=== PATIENT | male | born 1975 | race Caucasian/White ===

== ENCOUNTER 2016-08-17 12:12 | Emergency (ER) | payer SELFPAY ==
[~2016-08-17] VITALS: Ht 172.7 cm; Wt 94.0 kg
[~2016-08-17 12:12] MED LIST: LANTUS; LIPITOR; NOVALOG
[2016-08-17 12:15] VITALS: Ht 172.7 cm; Wt 94.0 kg
--- OUTSIDE RECORDS SUMMARY | 2016-08-17 12:16 | XMS REPORT | Referral Summary ---
Author Author [facility] Organization [facility] Address Unknown Phone Unavailable Care Team Providers Care Knitting Inspector Name Role Phone Martin Ma Primary Care Physician [phone] Encounter VC Date(s): 02/19/15 - 02/19/15 [facility] [address] [place] [id number] Discharge Disposition: 01-Home or Self Care Attending Physician: Roberto Ma MD Admitting Physician: Roberto Ma MD Vital Signs Most recent to 1 oldest [Reference Range]: Blood Pressure 124/84 mmHg [90-140/60-90 mmHg] (02/19/15 4:04 PM) Problem List Condition Effective Dates Status Health Status Informant Diabetes(Confirmed) 1988 Active Dyslipidemia(Confirm Active ed) GERD Active (gastroesophageal reflux disease)(Confirmed) Hyperlipidemia(Confi Active rmed) Obesity(Confirmed) Active Depression(Confirmed Active ) Apnea, Active sleep(Confirmed) Allergies, Adverse Reactions, Alerts No Known Medication Allergies Medications atorvastatin 20 mg oral tablet See Instructions, TAKE 1 TABLET BY MOUTH EVERY DAY, # 30 tabs, 3 Refill(s), eRx : [facility] [id number], TAKE 1 TABLET BY MOUTH EVERY DAY Start Date: 12/18/14 Status: Ordered CeleXA 20 mg oral tablet See Instructions, TAKE 1 TABLET (20MG) BY ORAL ROUTE EVERY DAY. Needs appt for further refills., # 30 tabs, 0 Refill(s), Pharmacy: [facility] [id number], TAKE 1 TABLET (20MG) BY ORAL ROUTE EVERY DAY. Needs appt for further refills. Start Date: 01/22/15 Status: Ordered Fish Oil 1000 mg oral capsule 1 caps, Oral, Daily Start Date: 02/07/14 Status: Ordered Insulin [place] (DME) DME Item NovoFine 30 30 x 1/3"; QID, See Instructions, Supply Start Date: 02/07/14 Status: Ordered Insulin [place] (DME) DME Item 31 x 07/17"; daily, See Instructions, Supply Start Date: 02/07/14 Status: Ordered Lantus Solostar Pen 100 units/mL subcutaneous solution See Instructions, INJECT 40 UNITS SUB-Q AT BEDTIME, # 60 unknown unit, 2 Refill( s), eRx: [facility] #[id number], INJECT 38 UNITS SUB-Q AT BEDTIME Start Date: 03/06/14 Status: Ordered Multivitamins oral tablet 1 tabs, Oral, Daily Start Date: 02/07/14 Stop Date: 02/08/14 Status: Ordered NovoLOG FlexPen 100 units/mL subcutaneous solution See Instructions, INJECT 14 UNITS SUB-Q AT BREAKFAST, 12 UNITS AT LUNCH, AND 10 UNITS AT SUPPER, # 60 unknown unit, 2 Refill(s), eRx: [facility] #[id number], INJECT 14 UNITS SUB-Q AT BREAKFAST, 12 UNITS AT LUNCH, AND 10 UNITS AT SUPPER Start Date: 03/06/14 Status: Ordered potassium chloride 99 mg oral tablet 99 mg 1 tabs, Oral, Daily, # 100 tabs, 0 Refill(s) Start Date: 02/19/15 Status: Ordered vitamin E 100 intl units oral capsule See Instructions, daily Start Date: 02/07/14 Status: Ordered Results Chemistry Most recent to 1 oldest [Reference Range]: Sodium Lvl [135-144 138 mEq/L mEq/L] (02/19/15 4:47 PM) Potassium Lvl 4.6 mEq/L [3.5-5.2 mEq/L] (02/19/15 4:47 PM) Chloride [99-111 102 mEq/L mEq/L] (02/19/15 4:47 PM) CO2 [23-31 mEq/L] 29 mEq/L (02/19/15 4:47 PM) AGAP [3-20] 7 (02/19/15 4:47 PM) BUN [9-21 mg/dL] 14 mg/dL (02/19/15 4:47 PM) Glucose Lvl [70-99 149 mg/dL mg/dL] *HI* (02/19/15 4:47 PM) Creatinine Lvl 1.24 mg/dL [0.72-1.25 mg/dL] (02/19/15 4:47 PM) eGFR [>60 mL/min] >60 mL/min 1 (02/19/15 4:47 PM) Calcium Lvl 9.6 mg/dL [8.9-10.5 mg/dL] (02/19/15 4:47 PM) Albumin Lvl [3.5-5.0 4.5 gm/dL gm/dL] (02/19/15 4:47 PM) Total Protein 7.3 gm/dL [6.4-8.3 gm/dL] (02/19/15 4:47 PM) Globulin [1.8-4.0 2.8 gm/dL gm/dL] (02/19/15 4:47 PM) ALT [0-55 U/L] 37 U/L (02/19/15 4:47 PM) AST [5-34 U/L] 24 U/L (02/19/15 4:47 PM) Alk Phos [40-150 107 U/L U/L] (02/19/15 4:47 PM) Bili Total [0.2-1.2 1.2 mg/dL mg/dL] (02/19/15 4:47 PM) Chol [0-199 mg/dL] 206 mg/dL *HI* (02/19/15 4:47 PM) Trig [0-149 mg/dL] 340 mg/dL *HI* (02/19/15 4:47 PM) HDL [40-84 mg/dL] 37 mg/dL *LOW* (02/19/15 4:47 PM) LDL [0-130 mg/dL] 101 mg/dL (02/19/15 4:47 PM) VLDL Cholesterol 68 mg/dL [0-28 mg/dL] *HI* (02/19/15 4:47 PM) Cardiac Risk 5.6 [0.0-5.7] (02/19/15 4:47 PM) Hgb A1c [4.1-5.6 %] 7.9 % *HI* (02/19/15 4:47 PM) eAvg Glucose 180.0 mg/dL (02/19/15 4:47 PM) 1Result Comment: Multiply eGFR results by 1.21 for race. Immunizations Vaccine Date Refusal Reason tetanus/diphth/pertuss (Tdap) adult/adol 07/08/13 influenza virus vaccine, inactivated 02/19/15 Procedures Procedure Date Related Diagnosis Body Site Collection of venous blood by venipuncture 02/19/15 Social History Social History Type Response Smoking Status Never smoker Assessment and Plan Extracted from: Title: Ambulatory Patient Education Author: Roberto Ma MD Date: Family Medicine Diabetes and Exercise Exercising regularly is important. It is not just about losing weight. It has many health benefits, such as: Improving your overall fitness, flexibility, and endurance. Increasing your bone density. Helping with weight control. Decreasing your body fat. Increasing your muscle strength. Reducing stress and tension. Improving your overall health. People with diabetes who exercise gain additional benefits because exercise: Reduces appetite. Improves the body's use of blood sugar (glucose). Helps lower or control blood glucose. Decreases blood pressure. Helps control blood lipids (such as cholesterol and triglycerides). Improves the body's use of the hormone insulin by: Increasing the body's insulin sensitivity. Reducing the body's insulin needs. Decreases the risk for heart disease because exercising: Lowers cholesterol and triglycerides levels. Increases the levels of good cholesterol (such as high-density lipoproteins [HDL]) in the body. Lowers blood glucose levels. YOUR ACTIVITY PLAN Choose an activity that you enjoy and set realistic goals. Your health care provider or primary special educator can help you make an activity plan that works for you. Exercise regularly as directed by your health care provider. This includes: Performing resistance training twice a week such as push-ups, sit-ups, lifting weights, or using resistance bands. Performing 150 minutes of cardio exercises each week such as walking, running, or playing sports. Staying active and spending no more than 90 minutes at one time being inactive. Even short bursts of exercise are good for you. Three 10-minute sessions spread throughout the day are just as beneficial as a single 30-minute session. Some exercise ideas include: Taking the dog for a walk. Taking the stairs instead of the elevator. Dancing to your favorite song. Doing an exercise video. Doing your favorite exercise with a friend. RECOMMENDATIONS FOR EXERCISING WITH TYPE 1 OR TYPE 2 DIABETES Check your blood glucose before exercising. If blood glucose levels are greater than 240 mg/dL, check for urine ketones. Do not exercise if ketones are present. Avoid injecting insulin into areas of the body that are going to be exercised. For example, avoid injecting insulin into: The arms when playing tennis. The legs when jogging. Keep a record of: Food intake before and after you exercise. Expected peak times of insulin action. Blood glucose levels before and after you exercise. The type and amount of exercise you have done. Review your records with your health care provider. Your health care provider will help you to develop guidelines for adjusting food intake and insulin amounts before and after exercising. If you take insulin or oral hypoglycemic agents, watch for signs and symptoms of hypoglycemia. They include: Dizziness. Shaking. Sweating. Chills. Confusion. Drink plenty of water while you exercise to prevent dehydration or heat stroke. Body water is lost during exercise and must be replaced. Talk to your health care provider before starting an exercise program to make sure it is safe for you. Remember, almost any type of activity is better than none. Document Released: 07/10/2004 Document Revised: 09/04/2014 Document Reviewed: [employer] Patient Information 2015 [email or web address] [facility]. This information is not intended to replace advice given to you by your health care provider. Make sure you discuss any questions you have with your health care provider. Diabetes Mellitus and Food It is important for you to manage your blood sugar (glucose) level. Your blood glucose level can be greatly affected by what you eat. Eating healthier foods in the appropriate amounts throughout the day at about the same time each day will help you control your blood glucose level. It can also help slow or prevent worsening of your diabetes mellitus. Healthy eating may even help you improve the level of your blood pressure and reach or maintain a healthy weight. HOW CAN FOOD AFFECT ME? Carbohydrates Carbohydrates affect your blood glucose level more than any other type of food. Your dietitian will help you determine how many carbohydrates to eat at each meal and teach you how to count carbohydrates. Counting carbohydrates is important to keep your blood glucose at a healthy level, especially if you are using insulin or taking certain medicines for diabetes mellitus. Alcohol Alcohol can cause sudden decreases in blood glucose (hypoglycemia), especially if you use insulin or take certain medicines for diabetes mellitus. Hypoglycemia can be a life-threatening condition. Symptoms of hypoglycemia ( sleepiness, dizziness, and disorientation) are similar to symptoms of having too much alcohol. If your health care provider has given you approval to drink alcohol, do so in moderation and use the following guidelines: Women should not have more than one drink per day, and men should not have more than two drinks per day. One drink is equal to: 12 oz of beer. 5 oz of wine. 1 oz of hard liquor. Do not drink on an empty stomach. Keep yourself hydrated. Have water, diet soda, or unsweetened iced tea. Regular soda, juice, and other mixers might contain a lot of carbohydrates and should be counted. WHAT FOODS ARE NOT RECOMMENDED? As you make food choices, it is important to remember that all foods are not the same. Some foods have fewer nutrients per serving than other foods, even though they might have the same number of calories or carbohydrates. It is difficult to get your body what it needs when you eat foods with fewer nutrients. Examples of foods that you should avoid that are high in calories and carbohydrates but low in nutrients include: Trans fats (most processed foods list trans fats on the Nutrition Facts label). Regular soda. Juice. Candy. Sweets, such as cake, pie, doughnuts, and cookies. Fried foods. WHAT FOODS CAN I EAT? Have nutrient-rich foods, which will nourish your body and keep you healthy. The food you should eat also will depend on several factors, including: The calories you need. The medicines you take. Your weight. Your blood glucose level. Your blood pressure level. Your cholesterol level. You also should eat a variety of foods, including: Protein, such as meat, poultry, fish, tofu, nuts, and seeds (lean animal proteins are best). Fruits. Vegetables. Dairy products, such as milk, cheese, and yogurt (low fat is best). Breads, grains, pasta, cereal, rice, and beans. Fats such as olive oil, trans fat-free margarine, canola oil, avocado, and olives. DOES EVERYONE WITH DIABETES MELLITUS HAVE THE SAME MEAL PLAN? Because every person with diabetes mellitus is different, there is not one meal plan that works for everyone. It is very important that you meet with a dietitian who will help you create a meal plan that is just right for you. Document Released: 01/15/2006 Document Revised: 04/25/2014 Document Reviewed: [facility] Patient Information 2015 [employer]. This information is not intended to replace advice given to you by your health care provider. Make sure you discuss any questions you have with your health care provider. Myocardial Infarction A myocardial infarction (CO) is damage to the heart that is not reversible. It is also called a heart attack. An CO usually occurs when a heart (coronary) artery becomes blocked or narrowed. This cuts off the blood supply to the heart. When one or more of the heart (coronary) arteries becomes blocked, that area of the heart begins to . This causes pain felt during an CO. If you think you might be having an CO, call your local emergency services immediately (911 in [place] It is recommended that you chew and swallow 3 non- enteric coated baby aspirin if you do not have an aspirin allergy. Do not drive yourself to the hospital or wait to see if your symptoms go away. The sooner CO is treated, the greater the amount of heart muscle saved. Time is muscle. It can save your life. CAUSES An CO can occur from: A gradual buildup of a fatty substance called plaque. When plaque builds up in the arteries, this condition is called atherosclerosis. This buildup can block or reduce the blood supply to the heart artery(s). A sudden plaque rupture within a heart artery that causes a blood clot ( thrombus). A blood clot can block the heart artery which does not allow blood flow to the heart. A severe tightening (spasm) of the heart artery. This is a less common cause of a heart attack. When a heart artery spasms, it cuts off blood flow through the artery. Spasms can occur in heart arteries that do not have atherosclerosis. RISK FACTORS People at risk for an CO usually have one or more risk factors, such as: High blood pressure. High cholesterol. Smoking. Gender. Men have a higher heart attack risk. Overweight/obesity. Age. Family history. Lack of exercise. Diabetes. Stress. Excessive alcohol use. Street drug use (cocaine and methamphetamines). SYMPTOMS CO symptoms can vary, such as: In both men and women, CO symptoms can include the following: Chest pain. The chest pain may feel like a crushing, squeezing, or "pressure" type feeling. CO pain can be "referred," meaning pain can be caused in one part of the body but felt in another part of the body. Referred CO pain may occur in the left arm, neck, or jaw. Pain may even be felt in the right arm. Shortness of breath (dyspnea). Heartburn or indigestion with or without vomiting, shortness of breath, or sweating (diaphoresis). Sudden, cold sweats. Sudden lightheadedness. Upper back pain. Women can have unique CO symptoms, such as: Unexplained feelings of nervousness or anxiety. Discomfort between the shoulder blades (scapula) or upper back. Tingling in the hands and arms. In elderly people (regardless of gender), CO symptoms can be subtle, such as: Sweating (diaphoresis). Shortness of breath (dyspnea). General tiredness (fatigue) or not feeling well (malaise). DIAGNOSIS Diagnosis of an CO involves several tests such as: An assessment of your vital signs such as heart rhythm, blood pressure, respiratory rate, and oxygen level. An EKG (ECG) to look at the electrical activity of your heart. Blood tests called cardiac markers are drawn at scheduled times to measure proteins or enzymes released by the damaged heart muscle. A chest X-ray. An echocardiogram to evaluate heart motion and blood flow. Coronary angiography (cardiac catheterization). This is a diagnostic procedure to look at the heart arteries. TREATMENT Acute Intervention. For an CO, the national standard in the [place] is to have an acute intervention in under 90 minutes from the time you get to the hospital. An acute intervention is a special procedure to open up the heart arteries. It is done in a treatment room called a "catheterization lab" (pathology laboratory director). Some hospitals do no have a pathology laboratory director. If you are having an CO and the hospital does not have a pathology laboratory director, the standard is to transport you to a hospital that has one. In the pathology laboratory director, acute intervention includes: Angioplasty. An angioplasty involves inserting a thin, flexible tube ( catheter) into an artery in either your groin or wrist. The catheter is threaded to the heart arteries. A balloon at the end of the catheter is inflated to open a narrowed or blocked heart artery. During an angioplasty procedure, a small mesh tube (stent) may be used to keep the heart artery open. Depending on your condition and health history, one of two types of stents may be placed: Drug-eluting stent (MAXIMILIANO). A MAXIMILIANO is coated with a medicine to prevent scar tissue from growing over the stent. With drug-eluting stents, blood thinning medicine will need to be taken for up to a year. Bare metal stent. This type of stent has no special coating to keep tissue from growing over it. This type of stent is used if you cannot take blood thinning medicine for a prolonged time or you need surgery in the near future. After a bare metal stent is placed, blood thinning medicine will need to be taken for about a month. If you are taking blood thinning medicine (anti-platelet therapy) after stent placement, do not stop taking it unless your caregiver says it is okay to do so. Make sure you understand how long you need to take the medicine. Surgical Intervention If an acute intervention is not successful, surgery may be needed: Open heart surgery (coronary artery bypass graft, CABG). CABG takes a vein (saphenous vein) from your leg. The vein is then attached to the blocked heart artery which bypasses the blockage. This then allows blood flow to the heart muscle. Additional Interventions A "clot buster" medicine (thrombolytic) may be given. This medicine can help break up a clot in the heart artery. This medicine may be given if a person cannot get to a pathology laboratory director right away. Intra-aortic balloon pump (IABP). If you have suffered a very severe CO and are too unstable to go to the pathology laboratory director or to surgery, an IABP may be used. This is a temporary mechanical device used to increase blood flow to the heart and reduce the workload of the heart until you are stable enough to go to the pathology laboratory director or surgery. HOME CARE INSTRUCTIONS After an CO, you may need the following: Medicine. Take medicine as directed by your caregiver. Medicines after an CO may: Keep your blood from clotting easily (blood thinners). Control your blood pressure. Help lower your cholesterol. Control abnormal heart rhythms. Lifestyle changes. Under the guidance of your caregiver, lifestyle changes include: Quitting smoking, if you smoke. Your caregiver can help you quit. Being physically active. Maintaining a healthy weight. Eating a heart healthy diet. A dietitian can help you learn healthy eating options. Managing diabetes. Reducing stress. Limiting alcohol intake. SEEK IMMEDIATE MEDICAL CARE IF: You have severe chest pain, especially if the pain is crushing or pressure- like and spreads to the arms, back, neck, or jaw. This is an emergency. Do not wait to see if the pain will go away. Get medical help at once. Call your local emergency services (911 in the [place] Do not drive yourself to the hospital. You have shortness of breath during rest, sleep, or with activity. You have sudden sweating or clammy skin. You feel sick to your stomach (nauseous) and throw up (vomit). You suddenly become lightheaded or dizzy. You feel your heart beating rapidly or you notice "skipped" beats. MAKE SURE YOU: Understand these instructions. Will watch your condition. Will get help right away if you are not doing well or get worse. Document Released: 04/20/2006 Document Revised: 04/25/2014 Document Reviewed: [facility] Patient Information 2015 [employer]. This information is not intended to replace advice given to you by your health care provider. Make sure you discuss any questions you have with your health care provider. No follow up information was provided. Extracted from: Title: Office Visit Note Author: Roberto Ma MD Date: 02/19/15 Assessment/Plan Depression Continue with the current medications. Ordered: Office Visit Level 4 Est 26273 Diabetes Will get lab today and follow in 3 months. He was given the Flu shot and also a sheet with foods that are rich in potassium. Ordered: Albumin Level Urine Comprehensive Metabolic Panel Hemoglobin A1c Office Visit Level 4 Est 58809 Hyperlipidemia Continue with the current medications. Ordered: Comprehensive Metabolic Panel Lipid Panel Office Visit Level 4 Est 15019 Orders: insulin glargine, See Instructions, INJECT 40 UNITS SUB-Q AT BEDTIME, # 60 unknown unit, 2 Refill(s), eRx: [facility] #[id number], INJECT 38 UNITS SUB-Q AT BEDTIME
--- OUTSIDE RECORDS SUMMARY | 2016-08-17 12:16 | XMS REPORT | Referral Summary ---
Author Author [facility] Organization [facility] Address Unknown Phone Unavailable Care Team Providers Care Power Distributor Name Role Phone Martin Ma Primary Care Physician [phone] Encounter Date(s): 06/14/15 - 06/14/15 [facility] [address] [place] [address]- Discharge Diagnosis: Diabetes Discharge Disposition: 01-Home or Self Care Attending Physician: Sofia Vera PA-C Admitting Physician: Sofia Vera PA-C Vital Signs Most recent to 1 oldest [Reference Range]: Peripheral Pulse 76 bpm Rate [60-100 bpm] (06/14/15 1:35 PM) Respiratory Rate 18 br/min [14-20 br/min] (06/14/15 1:35 PM) Blood Pressure 124/82 mmHg [90-140/60-90 mmHg] (06/14/15 1:35 PM) Problem List Condition Effective Dates Status Health Status Informant Diabetes(Confirmed) 1989 Active Dyslipidemia(Confirm Active ed) GERD Active (gastroesophageal reflux disease)(Confirmed) Hyperlipidemia(Confi Active rmed) Obesity(Confirmed) Active Depression(Confirmed Active ) Apnea, Active sleep(Confirmed) Allergies, Adverse Reactions, Alerts No Known Medication Allergies Medications atorvastatin 20 mg oral tablet See Instructions, TAKE 1 TABLET BY MOUTH EVERY DAY, # 30 tabs, 1 Refill(s), eRx : [id number], TAKE 1 TABLET BY MOUTH EVERY DAY Start Date: 05/28/15 Status: Ordered citalopram 20 mg oral tablet See Instructions, TAKE 1 TABLET BY MOUTH EVERY DAY, # 90 tabs, 1 Refill(s), Pharmacy: [id number], TAKE 1 TABLET BY MOUTH EVERY DAY Start Date: 02/22/15 Status: Ordered Fish Oil 1000 mg oral capsule 1 caps, Oral, Daily Start Date: 02/07/14 Status: Ordered Insulin [place] (DME) DME Item NovoFine 30 30 x 1/3"; QID, See Instructions, Supply Start Date: 02/07/14 Status: Ordered Insulin [place] (DME) DME Item 31 x 3/16"; daily, See Instructions, Supply Start Date: 02/07/14 Status: Ordered Lantus Solostar Pen 100 units/mL subcutaneous solution See Instructions, INJECT 40 UNITS SUB-Q AT BEDTIME, # 60 unknown unit, 2 Refill( s), eRx: [facility] #[id number], INJECT 38 UNITS SUB-Q AT BEDTIME Start Date: 03/06/14 Status: Ordered Multivitamins oral tablet 1 tabs, Oral, Daily Start Date: 02/07/14 Stop Date: 02/08/14 Status: Ordered NovoLOG FlexPen 100 units/mL subcutaneous solution See Instructions, INJECT 14 UNITS SUB-Q AT BREAKFAST, 12 UNITS AT LUNCH, AND 10 UNITS AT SUPPER, # 60 unknown unit, 2 Refill(s), eRx: [facility] #[id number], INJECT 14 UNITS SUB-Q AT BREAKFAST, 12 UNITS AT LUNCH, AND 10 UNITS AT SUPPER Start Date: 03/06/14 Status: Ordered potassium chloride 99 mg oral tablet 99 mg 1 tabs, Oral, Daily, # 100 tabs, 0 Refill(s) Start Date: 02/19/15 Status: Ordered vitamin E 100 intl units oral capsule See Instructions, daily Start Date: 02/07/14 Status: Ordered Results No data available for this section Immunizations Vaccine Date Refusal Reason tetanus/diphth/pertuss (Tdap) adult/adol 07/08/13 influenza virus vaccine, inactivated 02/19/15 Procedures No data available for this section Social History Social History Type Response Smoking Status Never smoker Assessment and Plan Extracted from: Title: Ambulatory Patient Education Author: Sofia Vera PA-C Date : 06/14/15 Family Medicine How to Avoid Diabetes Problems You can do a lot to prevent or slow down diabetes problems. Following your diabetes plan and taking care of yourself can reduce your risk of serious or life-threatening complications. Below, you will find certain things you can do to prevent diabetes problems. MANAGE YOUR DIABETES Follow your health care provider's, nurse educator's, and dietitian's instructions for managing your diabetes. They will teach you the basics of diabetes care. They can help answer questions you may have. Learn about diabetes and make healthy choices regarding eating and physical activity. Monitor your blood glucose level regularly. Your health care provider will help you decide how often to check your blood glucose level depending on your treatment goals and how well you are meeting them. DO NOT USE NICOTINE Nicotine and diabetes are a dangerous combination. Nicotine raises your risk for diabetes problems. If you quit using nicotine, you will lower your risk for heart attack, stroke, nerve disease, and kidney disease. Your cholesterol and your blood pressure levels may improve. Your blood circulation will also improve. Do not use any tobacco products, including cigarettes, chewing tobacco , or electronic cigarettes. If you need help quitting, ask your health care provider. KEEP YOUR BLOOD PRESSURE UNDER CONTROL Your health care provider will determine your individualized target blood pressure based on your age, your medicines, how long you have had diabetes, and any other medical conditions you have. Blood pressure consists of two numbers. Generally, the goal is to keep your top number (systolic pressure) at or below 130, and your bottom number (diastolic pressure) at or below 80. Your health care provider may recommend a lower target blood pressure reading, if appropriate. Meal planning, medicines, and exercise can help you reach your target blood pressure. Make sure your health care provider checks your blood pressure at every visit. KEEP YOUR CHOLESTEROL UNDER CONTROL Normal cholesterol levels will help prevent heart disease and stroke. These are the biggest health problems for people with diabetes. Keeping cholesterol levels under control can also help with blood flow. Have your cholesterol level checked at least once a year. Your health care provider may prescribe a medicine known as a statin. Statins lower your cholesterol. If you are not taking a statin, ask your health care provider if you should be. Meal planning, exercise, and medicines can help you reach your cholesterol targets. SCHEDULE AND KEEP YOUR ANNUAL PHYSICAL EXAMS AND EYE EXAMS Your health care provider will tell you how often he or she wants to see you depending on your plan of treatment. It is important that you keep these appointments so that possible problems can be identified early and complications can be avoided or treated. Every visit with your health care provider should include your weight, blood pressure, and an evaluation of your blood glucose control. Your hemoglobin A1c should be checked: At least twice a year if you are at your goal. Every 3 months if there are changes in treatment. If you are not meeting your goals. Your blood lipids should be checked yearly. You should also be checked yearly to see if you have protein in your urine (microalbumin). Schedule a dilated eye exam within 5 years of your diagnosis if you have type 1 diabetes, and then yearly. Schedule a dilated eye exam at diagnosis if you have type 2 diabetes, and then yearly. All exams thereafter can be extended to every 2 to 3 years if one or more exams have been normal. KEEP YOUR VACCINES CURRENT It is recommended that you receive a flu (influenza) vaccine every year. It is also recommended that you receive a pneumonia (pneumococcal) vaccine. If you are 65 years of age or older and have never received a pneumonia vaccine, this vaccine may be given as a series of two separate shots. Ask your health care provider which additional vaccines may be recommended. TAKE CARE OF YOUR FEET Diabetes may cause you to have a poor blood supply (circulation) to your legs and feet. Because of this, the skin may be thinner, break easier, and heal more slowly. You also may have nerve damage in your legs and feet, causing decreased feeling. You may not notice minor injuries to your feet that could lead to serious problems or infections. Taking care of your feet is very important. Visual foot exams are performed at every routine medical visit. The exams check for cuts, injuries, or other problems with the feet. A comprehensive foot exam should be done yearly. This includes visual inspection as well as assessing foot pulses and testing for loss of sensation. You should also do the following: Inspect your feet daily for cuts, calluses, blisters, ingrown toenails, and signs of infection, such as redness, swelling, or pus. Wash and dry your feet thoroughly, especially between the toes. Avoid soaking your feet regularly in hot water baths. Moisturize dry skin with lotion, avoiding areas between your toes. Cut toenails straight across and file the edges. Avoid shoes that do not fit well or have areas that irritate your skin. Avoid going barefooted or wearing only socks. Your feet need protection. TAKE CARE OF YOUR TEETH People with poorly controlled diabetes are more likely to have gum (periodontal ) disease. These infections make diabetes harder to control. Periodontal diseases, if left untreated, can lead to tooth loss. [place] your teeth twice a day, floss, and see your dentist for checkups and cleaning every 6 months, or 2 times a year. ASK YOUR HEALTH CARE PROVIDER ABOUT TAKING ASPIRIN Taking aspirin daily is recommended to help prevent cardiovascular disease in people with and without diabetes. Ask your health care provider if this would benefit you and what dose he or she would recommend. DRINK RESPONSIBLY Moderate amounts of alcohol (less than 1 drink per day for adult women and less than 2 drinks per day for adult men) have a minimal effect on blood glucose if ingested with food. It is important to eat food with alcohol to avoid hypoglycemia. People should avoid alcohol if they have a history of alcohol abuse or dependence, if they are , and if they have liver disease, pancreatitis, advanced neuropathy, or severe hypertriglyceridemia. LESSEN STRESS Living with diabetes can be stressful. When you are under stress, your blood glucose may be affected in two ways: Stress hormones may cause your blood glucose to rise. You may be distracted from taking good care of yourself. It is a good idea to be aware of your stress level and make changes that are necessary to help you better manage challenging situations. Support groups, planned relaxation, a hobby you enjoy, meditation, healthy relationships, and exercise all work to lower your stress level. If your efforts do not seem to be helping, get help from your health care provider or a trained mental health professional. This information is not intended to replace advice given to you by your health care provider. Make sure you discuss any questions you have with your health care provider. Document Released: 01/06/2012 Document Revised: 02/06/2015 Document Reviewed: [facility] Patient Information 2015 [facility]. Obstetrics and Gynecology Hyperglycemia Hyperglycemia occurs when the glucose (sugar) in your blood is too high. Hyperglycemia can happen for many reasons, but it most often happens to people who do not know they have diabetes or are not managing their diabetes properly. CAUSES Whether you have diabetes or not, there are other causes of hyperglycemia. Hyperglycemia can occur when you have diabetes, but it can also occur in other situations that you might not be as aware of, such as: Diabetes If you have diabetes and are having problems controlling your blood glucose, hyperglycemia could occur because of some of the following reasons: Not following your meal plan. Not taking your diabetes medications or not taking it properly. Exercising less or doing less activity than you normally do. Being sick. Pre-diabetes This cannot be ignored. Before people develop Type 2 diabetes, they almost always have "pre-diabetes." This is when your blood glucose levels are higher than normal, but not yet high enough to be diagnosed as diabetes. Research has shown that some long-term damage to the body, especially the heart and circulatory system, may already be occurring during pre-diabetes. If you take action to manage your blood glucose when you have pre-diabetes, you may delay or prevent Type 2 diabetes from developing. Stress If you have diabetes, you may be "diet" controlled or on oral medications or insulin to control your diabetes. However, you may find that your blood glucose is higher than usual in the hospital whether you have diabetes or not. This is often referred to as "stress hyperglycemia." Stress can elevate your blood glucose. This happens because of hormones put out by the body during times of stress. If stress has been the cause of your high blood glucose, it can be followed regularly by your caregiver. That way he/she can make sure your hyperglycemia does not continue to get worse or progress to diabetes. Steroids Steroids are medications that act on the infection fighting system ( immune system) to block inflammation or infection. One side effect can be a rise in blood glucose. Most people can produce enough extra insulin to allow for this rise, but for those who cannot, steroids make blood glucose levels go even higher. It is not unusual for steroid treatments to "uncover" diabetes that is developing. It is not always possible to determine if the hyperglycemia will go away after the steroids are stopped. A special blood test called an A1c is sometimes done to determine if your blood glucose was elevated before the steroids were started. SYMPTOMS Thirsty. Frequent urination. Dry mouth. Blurred vision. Tired or fatigue. Weakness. Sleepy. Tingling in feet or leg. DIAGNOSIS Diagnosis is made by monitoring blood glucose in one or all of the following ways: A1c test. This is a chemical found in your blood. Fingerstick blood glucose monitoring. Laboratory results. TREATMENT First, knowing the cause of the hyperglycemia is important before the hyperglycemia can be treated. Treatment may include, but is not be limited to: Education. Change or adjustment in medications. Change or adjustment in meal plan. Treatment for an illness, infection, etc. More frequent blood glucose monitoring. Change in exercise plan. Decreasing or stopping steroids. Lifestyle changes. HOME CARE INSTRUCTIONS Test your blood glucose as directed. Exercise regularly. Your caregiver will give you instructions about exercise. Pre-diabetes or diabetes which comes on with stress is helped by exercising. Eat wholesome, balanced meals. Eat often and at regular, fixed times. Your caregiver or sawmill equipment operator will give you a meal plan to guide your sugar intake. Being at an ideal weight is important. If needed, losing as little as 10 to 15 pounds may help improve blood glucose levels. SEEK MEDICAL CARE IF: You have questions about medicine, activity, or diet. You continue to have symptoms (problems such as increased thirst, urination, or weight gain). SEEK IMMEDIATE MEDICAL CARE IF: You are vomiting or have diarrhea. Your breath smells fruity. You are breathing faster or slower. You are very sleepy or incoherent. You have numbness, tingling, or pain in your feet or hands. You have chest pain. Your symptoms get worse even though you have been following your caregiver's orders. If you have any other questions or concerns. This information is not intended to replace advice given to you by your health care provider. Make sure you discuss any questions you have with your health care provider. Document Released: 10/14/2001 Document Revised: 07/12/2012 Document Reviewed: [employer] Patient Information 2015 [employer]. No follow up information was provided. Extracted from: Title: Office Visit Note- FMLA for Author: Sofia Vera PA-C Date : 06/14/15 DM Assessment/Plan Diabetes FMLA paperwork was filled out for pt today. Basically discussed that pt will need routine appointments about Q3 months for his diabetes, and may miss work for these. He also can have variable blood sugar issues that can cause mental status changes, which would be inadvisable to drive to work or operate heavy machinery. He checks BG levels frequently, and always has a snack available in case blood sugar gets too low. Pt may miss work periodically unscheduled due to his diabetes. Copies made and originals given back to pt. He will follow up with Dr. Ma in August. Ordered: Office Visit Level 3 Est [id number]
--- OUTSIDE RECORDS SUMMARY | 2016-08-17 12:16 | XMS REPORT | Continuity of Care Document ---
Author Author [facility] Organization [facility] Address Unknown Phone Unavailable Allergies Active Description Code Type Severity Reaction Onset Reported/Identified Relationship to Patient Clinical Status Yes No Known Medication Allergies NKMA N/A N/A 02/07/2014 Medications Problems Procedures Results Encounters ACCT No. Visit Date/Time Discharge Status Pt. Type Provider Facility Loc./Unit Complaint [id number] 07/08/2013 13:28:00 07/08/2013 23 :59:59 CLS Outpatient
--- OUTSIDE RECORDS SUMMARY | 2016-08-17 12:17 | XMS REPORT | Referral Summary ---
Author Author [facility] Organization [facility] Address Unknown Phone Unavailable Care Team Providers Care Warping Mill Operator Name Role Phone Martin Ma Primary Care Physician [phone] Encounter [facility] Date(s): 02/19/15 - 02/19/15 [facility] [address] [place] [id number] Discharge Disposition: 01-Home or Self Care Attending [...] 20 mg oral tablet See Instructions, TAKE ONE TABLET BY MOUTH DAILY, # 30 tabs, eRx: [facility] #[id number], TAKE ONE TABLET BY MOUTH DAILY Start Date: 08/31/15 Status: Ordered citalopram 20 mg oral tablet See Instructions, TAKE 1 TABLET BY MOUTH EVERY DAY, # 90 tabs, 1 Refill(s), Pharmacy: [facility] #[id number], TAKE 1 TABLET BY MOUTH EVERY DAY Start Date: 07/04/15 Status: Ordered Fish Oil 1000 mg oral capsule 1 caps, Oral, Daily Start Date: 02/07/14 Status: Ordered HDL Benefit 500 mg oral capsule 500 mg 1 caps, Oral, BID, # 60 caps, 0 Refill(s), Pharmacy: [facility] # [id number], 1 caps Oral BID Start Date: 08/21/15 Status: Ordered HumaLOG KwikPen 100 units/mL subcutaneous solution 12 units, SubCutaneous, TIDAC, # 15 mL, 6 Refill(s) Start Date: 08/21/15 Status: Ordered Insulin Pin [place] (DME) DME Item NovoFine 30 30 x 13"; QID, See Instructions, Supply Start Date: 02/07/14 Status: Ordered Insulin Pin [place] (DME) DME Item 31 x 16"; daily, See Instructions, Supply Start Date: 02/07/14 Status: Ordered Lantus Solostar Pen 100 units/mL subcutaneous solution See Instructions, INJECT 38 UNITS SUB-Q AT BEDTIME, # 60 unknown unit, 1 Refill( s), eRx: [facility] #[id number], INJECT 38 UNITS SUB-Q AT BEDTIME Start Date: 07/04/15 Status: Ordered Levemir 100 units/mL subcutaneous solution 20 units, SubCutaneous, BID, # 2 vials, 6 Refill(s) Start Date: 08/21/15 Status: Ordered Multivitamins oral tablet 1 tabs, Oral, Daily Start Date: 02/07/14 Stop Date: 02/08/14 Status: Ordered NovoLOG FlexPen 100 units/mL subcutaneous solution See Instructions, INJECT 14 UNITS SUB-Q AT BREAKFAST, 12 UNITS AT LUNCH, AND 10 UNITS AT SUPPER, # 60 unknown unit, 1 Refill(s), eRx: [facility] #[id number], INJECT 14 UNITS SUB-Q AT BREAKFAST, 12 UNITS AT LUNCH, AND 10 UNITS AT SUPPER Start Date: 07/04/15 Status: Ordered potassium chloride 99 mg oral [...] Collection of venous blood by venipuncture 02/19/15 Collection of venous blood by venipuncture 02/19/15 Collection of venous blood by venipuncture 02/19/15 [...] realistic goals. Your health care provider or staff development educator can help you make an activity [...] 09/04/2014 Document Reviewed: ExitCare Patient Information [facility]. This information is not intended to [...] Released: 01/15/2006 Document Revised: 04/25/2014 Document Reviewed: ExitCare Patient Information 2015 [employer]. This information is not intended to replace advice given to you by your health care provider. Make sure you discuss any questions you have with your health care provider. Myocardial Infarction A myocardial infarction (OK) is damage to the heart that is not reversible. It is also called a heart attack. An OK usually occurs when a heart (coronary) artery becomes blocked or narrowed. This cuts off the blood supply to the heart. When one or more of the heart (coronary) arteries becomes blocked, that area of the heart begins to . This causes pain felt during an OK. If you think you might be having an OK, call your local emergency services immediately (911 in [place] It is recommended that you chew and swallow 3 non- enteric coated baby aspirin if you do not have an aspirin allergy. Do not drive yourself to the hospital or wait to see if your symptoms go away. The sooner OK is treated, the greater the amount of heart muscle saved. Time is muscle. It can save your life. CAUSES An OK can occur from: A gradual buildup of [...] RISK FACTORS People at risk for an OK usually have one or more risk factors, such as: High blood pressure. High cholesterol. Smoking. Gender. Men have a higher heart attack risk. Overweight/obesity. Age. Family history. Lack of exercise. Diabetes. Stress. Excessive alcohol use. Street drug use (cocaine and methamphetamines). SYMPTOMS OK symptoms can vary, such as: In both men and women, OK symptoms can include the following: Chest pain. The chest pain may feel like a crushing, squeezing, or "pressure" type feeling. OK pain can be "referred," meaning pain can be caused in one part of the body but felt in another part of the body. Referred OK pain may occur in the left arm, neck, or jaw. Pain may even be felt in the right arm. Shortness of breath (dyspnea). Heartburn or indigestion with or without vomiting, shortness of breath, or sweating (diaphoresis). Sudden, cold sweats. Sudden lightheadedness. Upper back pain. Women can have unique OK symptoms, such as: Unexplained feelings of nervousness or anxiety. Discomfort between the shoulder blades (scapula) or upper back. Tingling in the hands and arms. In elderly people (regardless of gender), OK symptoms can be subtle, such as: Sweating (diaphoresis). Shortness of breath (dyspnea). General tiredness (fatigue) or not feeling well (malaise). DIAGNOSIS Diagnosis of an OK involves several tests such as: An assessment [...] heart arteries. TREATMENT Acute Intervention. For an OK, the national standard in the [place] is to have an acute intervention in under 90 minutes from the time you get to the hospital. An acute intervention is a special procedure to open up the heart arteries. It is done in a treatment room called a "catheterization lab" (terrazzo laborer). Some hospitals do no have a terrazzo laborer. If you are having an OK and the hospital does not have a terrazzo laborer, the standard is to transport you to a hospital that has one. In the terrazzo laborer, acute intervention includes: Angioplasty. An angioplasty involves [...] if a person cannot get to a terrazzo laborer right away. Intra-aortic balloon pump (IABP). If you have suffered a very severe OK and are too unstable to go to the terrazzo laborer or to surgery, an IABP may be used. This is a temporary mechanical device used to increase blood flow to the heart and reduce the workload of the heart until you are stable enough to go to the terrazzo laborer or surgery. HOME CARE INSTRUCTIONS After an OK, you may need the following: Medicine. Take medicine as directed by your caregiver. Medicines after an OK may: Keep your blood from clotting easily [...] Released: 04/20/2006 Document Revised: 04/25/2014 Document Reviewed: ExitCare Patient Information 2015 [employer]. This information is not intended to replace advice given to you by your health care provider. Make sure you discuss any questions you have with your health care provider. No follow up information was provided. Extracted from: Title: Office Visit Note Author: Roberto Ma MD Date: 02/19/15 Assessment/Plan Depression Continue with the current medications. Ordered: Office Visit Level 4 Est 66707 Diabetes Will get lab today and follow in 3 months. He was given the Flu shot and also a sheet with foods that are rich in potassium. Ordered: Albumin Level Urine Comprehensive Metabolic Panel Hemoglobin A1c Office Visit Level 4 Est 09185 Hyperlipidemia Continue with the current medications. Ordered: Comprehensive Metabolic Panel Lipid Panel Office Visit Level 4 Est 05974 Orders: insulin glargine, See Instructions, INJECT 40 UNITS SUB-Q AT BEDTIME, # 60 unknown unit, 2 Refill(s), eRx: [facility] #[id number], INJECT 38 UNITS SUB-Q AT BEDTIME
--- OUTSIDE RECORDS SUMMARY | 2016-08-17 12:17 | XMS REPORT | Continuity of Care Document ---
Author Author Jaime STERLING, Karie Gerardo [facility] Ambulatory Address [address] [place] [address] Phone Care Team Providers Care Dust Mixer Name Role Phone Roberto Ma PP Unavailable Payers Payer name Insurance type Covered green party ID Authorization(s) Unknown Problems Condition Effective Dates (start - stop) Clinical Status NEED FOR PROPHYLACTIC VACCINATION WITH COMBINED [id number] ( DTP) (DTAP) VACCINE - Open wound site NOS - *Acute Need for prophylactic vaccination with tetanus-dip - *Acute Bursitis of hip, right - *Acute Exposure to STD - *Acute Stress - *Acute Diabetes Mellitus, Juvenile, Controlled - *Chronic Depression - *Controlled Mixed Hyperlipidemia - *Fair Control DMI WO CMP NT ST UNCNTRL - MIXED HYPERLIPIDEMIA - DM (diabetes mellitus) - *Stable Depression - *Controlled Excessive anger - *Controlled Acute dermatitis - *Chronic Diabetes Mellitus, Juvenile, Controlled - *Fair Control Depression - *Stable Diabetes Mellitus, Juvenile, Controlled - *Stable Diabetes Mellitus Type 2, Uncomplicated - *Poor control Mixed Hyperlipidemia - *Poor control Depression - *Controlled Conjunctivitis, unspecified - *Acute Scleritis of both eyes - *Acute Family History Family Member Diagnosis Age At Onset Status Mother (Unknown) Alive and well (Unknown) Father (Unknown) Alive and well (Unknown) Social History Social History Element Description Quantity Unknown Allergies, Adverse Reactions, Alerts Substance Reaction Severity Status Unknown Medications Medication Instructions Dosage Effective Dates (start - stop) Status Celexa 20 mg tablet take 1 tablet (20MG) by oral route every day 20 MG Jul - Active cephalexin 500 mg capsule take 2 Capsule (1000MG) by oral route every 12 hours for 10 days 1000 MG - No Longer Active Multiple Vitamins tablet take 1 by Oral route every for 1 day 0 2011 - Active Fish Oil 1,000 mg capsule take 1 by Oral route every day 0 - Active vitamin E 100 unit capsule daily - Active NovoFine 30 30 x 1/3" needle qid - Active Pen Needle 31 x 3/16" DAILY - Active Lantus Solostar 100 unit/mL (3 mL) subcutaneous insulin pen Inject 38 units SQ at bedtime. - Active Lipitor 10 mg tablet take 1 tablet (10MG) by oral route every day 10 MG - Active Novolog Flexpen 100 unit/mL subcutaneous 14 units at breakfast,12 units at lunch,10 units at supper 0 - Active Immunizations Vaccine Date Status Comments Tdap (Boostrix r) completed Results Test Name Date and Time Measure Units Reference Range Abnormal Flag Comments Unknown Vital Signs Date / Time: Height Weight Pulse Rate Blood Pressure Temperature /13:30:00 69.00 in 236.00 lbs 124/78 mm[Hg] 84.2 F Procedures Procedure Date TDAP VACCINE >7 IM Encounters Encounter Location Date Patient Visit [facility] Patient Visit [facility] Patient Visit [facility] Patient Visit [facility] Patient Visit [facility] Patient Visit [facility] Patient Visit Con[facility] Patient Visit [facility] Patient Visit [facility] Patient Visit [facility] Patient Visit [facility] Patient Visit [facility] Advance Directives Directive Effective Date Unknown
--- OUTSIDE RECORDS SUMMARY | 2016-08-17 12:17 | XMS REPORT | Referral Summary ---
Author Author [facility] Organization [facility] Address Unknown Phone Unavailable Care Team Providers Care Edger Machine Setter Name Role Phone Martin Ma Primary Care Physician [phone] Encounter [facility] [id number] Date(s): 08/21/15 - 08/21/15 [facility] [address] [place] [address]- Discharge Disposition: 01-Home or Self Care Attending Physician: Roberto Ma MD Admitting Physician: Roberto Ma MD Vital Signs Most recent to 1 oldest [Reference Range]: Blood Pressure 120/80 mmHg [90-140/60-90 mmHg] (08/21/15 3:58 PM) Problem List Condition Effective Dates Status Health Status Informant Diabetes(Confirmed) 1990 Active Dyslipidemia(Confirm Active ed) GERD Active (gastroesophageal reflux disease)(Confirmed) Hyperlipidemia(Confi Active rmed) Obesity(Confirmed) Active Depression(Confirmed Active ) Apnea, Active sleep(Confirmed) Allergies, Adverse Reactions, Alerts No Known Medication Allergies Medications atorvastatin 20 mg oral tablet See Instructions, TAKE ONE TABLET BY MOUTH DAILY, # 30 tabs, eRx: [facility] #[id number], TAKE ONE TABLET BY MOUTH DAILY Start Date: 08/02/15 Status: Ordered citalopram 20 mg oral tablet See Instructions, TAKE 1 TABLET BY MOUTH EVERY DAY, # 90 tabs, 1 Refill(s), Pharmacy: [facility] #[id number], TAKE 1 TABLET BY MOUTH EVERY DAY Start Date: 07/04/15 Status: Ordered Fish Oil 1000 mg oral capsule 1 caps, Oral, Daily Start Date: 02/07/14 Status: Ordered HDL Benefit 500 mg oral capsule 500 mg 1 caps, Oral, BID, # 60 caps, 0 Refill(s), Pharmacy: [facility] # [id number], 1 caps Oral BID Start Date: 08/21/15 Status: Ordered HumaLOG KwikPen 100 units/mL subcutaneous solution 12 units, SubCutaneous, TIDAC, # 15 mL, 6 Refill(s) Start Date: 08/21/15 Status: Ordered Insulin Pin [place] (DME) DME Item NovoFine 30 30 x 1/3"; QID, See Instructions, Supply Start Date: 02/07/14 Status: Ordered Insulin Pin [place] (DME) DME Item 31 x 316"; daily, See Instructions, Supply Start Date: 02/07/14 Status: Ordered Lantus Solostar Pen 100 units/mL subcutaneous solution See Instructions, INJECT 38 UNITS SUB-Q AT BEDTIME, # 60 unknown unit, 1 Refill( s), eRx: [facility] #[id number], INJECT 38 UNITS SUB-Q AT BEDTIME Start [...] # 60 unknown unit, 1 Refill(s), eRx: [facility] #[id number], INJECT 14 UNITS SUB-Q AT BREAKFAST, 12 [...] Smoking Status Never smoker Assessment and Plan No data available for this section
--- OUTSIDE RECORDS SUMMARY | 2016-08-17 12:17 | XMS REPORT | Referral Summary ---
Author Author [facility] Organization [facility] Address Unknown Phone Unavailable Care Team Providers Care Lobbyist Name Role Phone Martin Ma Primary Care Physician [phone] Encounter [facility] [id number] Date(s): 05/14/16 - 05/14/16 [facility], [address] [place] [address]- Discharge Diagnosis: Diabetes Discharge Diagnosis: Dyslipidemia Discharge Diagnosis: Depression Discharge Disposition: 01-Home or Self Care Attending Physician: Roberto Ma MD Admitting Physician: Roberto Ma MD Vital Signs Most recent to 1 oldest [Reference Range]: Blood Pressure 130/90 mmHg [90-140/60-90 mmHg] (05/14/16 4:01 PM) Problem List Condition Effective Dates Status Health Status Informant Diabetes(Confirmed) 1989 Active Dyslipidemia(Confirm Active ed) GERD Active (gastroesophageal reflux disease)(Confirmed) Hyperlipidemia(Confi Active rmed) Obesity(Confirmed) Active Depression(Confirmed Active ) Apnea, Active sleep(Confirmed) Allergies, Adverse Reactions, Alerts No Known Medication Allergies Medications atorvastatin 20 mg oral tablet See Instructions, TAKE ONE TABLET BY MOUTH DAILY, # 30 tabs, eRx: [facility] #[id number] Start Date: 05/07/16 Status: Ordered citalopram 20 mg oral tablet See Instructions, TAKE ONE TABLET BY MOUTH DAILY, # 90 tabs, [facility]Rx: [facility] #[id number], TAKE ONE TABLET BY MOUTH DAILY Start Date: 04/04/16 Status: Ordered Fish Oil 1000 mg oral capsule 1 caps, Oral, Daily Start Date: 02/07/14 Status: Ordered HDL Benefit 500 mg oral capsule 500 mg 1 caps, Oral, BID, # 60 caps, 0 Refill(s), Pharmacy: [facility] # [id number], 1 caps Oral BID Start Date: 08/21/15 Status: Ordered HumaLOG KwikPen 100 units/mL subcutaneous solution 12 units, SubCutaneous, TIDAC, # 15 mL, 6 Refill(s) Start Date: 08/21/15 Status: Ordered Insulin Pin [place] (DME) DME Item NovoFine 30 30 x 1/3"; QID, See Instructions, Supply Start Date: 02/07/14 Status: Ordered Insulin Pin [place] (DME) DME Item 31 x 316"; daily, See Instructions, Supply Start Date: 02/07/14 Status: Ordered Lantus Solostar Pen 100 units/mL subcutaneous solution See Instructions, INJECT 38 UNITS SUB-Q AT BEDTIME, # 60 unknown unit, 1 Refill( s), eRx: [facility] #[id number], INJECT 38 UNITS SUB-Q AT BEDTIME Start [...] # 60 unknown unit, 1 Refill(s), eRx: [facility] #[id number], INJECT 14 UNITS SUB-Q AT BREAKFAST, 12 [...] No data available for this section Immunizations Given and Recorded Vaccine Date Status Refusal Reason tetanus/diphth/pertuss (Tdap) adult/adol 07/08/13 Recorded influenza virus vaccine, inactivated 02/19/15 Given Procedures No data available for this section Social History Social History Type Response Smoking Status Never smoker Assessment and Plan No data available for this section
--- OUTSIDE RECORDS SUMMARY | 2016-08-17 12:35 | XMS REPORT | Continuity of Care Document ---
Author Author [facility] Organization [facility] Address Unknown Phone Unavailable Allergies Active Description Code Type Severity Reaction Onset Reported/Identified Relationship to Patient Clinical Status Yes No Known Medication Allergies NKMA N/A N/A 02/07/2014 Medications Problems Procedures Results Encounters ACCT No. Visit Date/Time Discharge Status Pt. Type Provider Facility Loc./Unit Complaint [id number] 07/08/2013 13:28:00 07/08/2013 23 :59:59 C[facility] Outpatient
[2016-08-17] MEDS ORDERED: CITA20TA9 PO (12:37)
[2016-08-17] MEDS ORDERED: ATOR20TA59 PO (12:37)
[2016-08-17] MEDS ORDERED: INSU100V13 SQ (12:37)
--- NOTE | 2016-08-17 12:37 | NUR ---
PROVIDER SAURAV JO IN WITH PT
[2016-08-17] MEDS ORDERED: ACET-62 PO (12:38)
[2016-08-17] MEDS ORDERED: INSU100V8 SQ (12:38)
[2016-08-17] MEDS ORDERED: VITA400C25 PO (12:41)
[2016-08-17] MEDS ORDERED: FISH1CAP2 PO (12:41)
[2016-08-17] MEDS ORDERED: POTA10CA37 PO (12:41)
[2016-08-17] MEDS ORDERED: MULT1TAB69 PO (12:41)
[2016-08-17] MEDS ORDERED: EYE WASH SOLUTION 30 ML BOTTLE RIGHT EYE ONE (12:45)
[2016-08-17] MEDS ORDERED: TETRACAINE 0.5% EYE DROPS 4ml BOTTLE RIGHT EYE ONE (12:45)
[2016-08-17] MEDS ORDERED: FLUORESCEIN SODIUM 1 MG/STRIP RIGHT EYE ONE (12:45)
--- NOTE | 2016-08-17 13:19 | ERPDOC ---
Departure Disposition Decision Date: Aug 17, 2016 Disposition Decision Time: 13:42 Disposition: 01 DISCHARGED HOME, SELF-CARE Impression Impression Impression: Primary Impression: Foreign body in eyeball, right Qualified Codes: S05.51XA - Penetrating wound with foreign body of right eyeball, initial encounter Severity: Moderate Condition: Stable Seen By: Mid-level only Referrals: GEMINI ALEJANDRO MD (Family) Patient Instructions: Eye Foreign Body (ED) Problems/Meds/Labs Reviewed?: Yes Medications reviewed and manag: Yes Additional Instructions: Use the Erythromycin ointment as prescribed. I do want you to follow up with Dr Cordero for follow up and reevaluation of your eye this week. If you have any further concerns then return to ER. Follow up care ordered?: Yes Mental Status: Alert, Oriented Scripts Gentamicin Sulfate (Gentak) 3.5 Gm Oint...g. 1 APPLIC RIGHT EYE QID, #3.5 G 0 Refills Prov: NAFISA AARON BLANKET CUTTING MACHINE OPERATOR 08/17/16 HPI - EENT General General Chief Complaint: Eye Problems Stated Complaint: SOMETHING IN RIGHT EYE Time Seen by Provider: 12:24 Source: patient Exam Limitations: no limitations HPI - EENT General Initial Comments He was sanding on a metal pipe on Thursday and felt like something went into his right eye. Has had pain and discomfort in this eye since then. He continues to feel like something is in his eye. Denies any blurred vision. Occurred At: home Onset/Timing: Gradual Duration: other (Over the last 3 days) Severity: mild Location: eye (R) Prearrival Treatment: no prearrival treatment Associated Symptoms: denies symptoms Allergies: Coded Allergies: No Known Drug Allergies (Unverified Allergy, Unknown, 08/17/16) Past History Past Medical History Pt denies signifigant H Surgical History Denies Surgeries Family History Family History: Negative Social History Smoking Status: Never smoker Substance Use Type: does not use Alcohol Intake: none Review of Systems Constitutional Constitutional: DENIES: chills, fever Eyes General: pain, watering Lids/Accessories: DENIES: erythema, swelling Vision: DENIES: blurring, change in color, double vision ENMT Ears: DENIES: drainage, pain Sinuses: DENIES: congestion, rhinorrhea Mouth/Throat: DENIES: scratchy throat, sore throat Physical Exam General General Nourishment: well nourished, well developed, appears stated age, no acute distress, adult General Body Habitus: well groomed Vitals and Pain First Documented Vital Signs Date Time Temp Pulse Resp B/P Pulse Ox O2 Delivery O2 Flow Rate FiO2 08/17/16 12:15 98.1 83 15 149/93 99 Room Air Weight: Kilograms: 94.000 Height (feet): 5 Height (inches): 8.00 Triage Pain Scale: RN VS reviewed by Provider: Yes Normal Exams: Neurologic: Patient is alert, and oriented Psychiatric: Patient exhibits, appropriate attention, emotion and affect Eyes (brief) Eyes Brief: found: EOMI, PERRL, foreign body (There is a very small spec of FB substance on the right cornea just to the border of the pupil and the iris. ), other (Scleral injection noted) Eyes 1 - area of the spec of FB Differential Diagnoses Considering: Abrasion, Abscess, Conjunctival Foreign Body, Conjunctivitis, Corneal Foreign Body Procedures Procedures Performed Procedures Performed: Eye Slit Lamp Exam, FBR - eye Eye Procedure Procedure Eye : Eyes: Right eye Topical Anesthetic Drops: YES: Tetracaine drops Slit Lamp Used?: Yes Cornea: FOUND: foreign body Fluorescein used?: Yes Fluorescein uptake?: Yes FB Removal Method: other (eye spud) Foreign Body Removal Procedure Foreign Body Removal : Location: other (right eye) Foreign Body: other (spec of metal) Anesthesia: other (Tetracaine) Removal Technique: other (Did attempt to use an eye spud to remove the spec but was unsuccessful with 2 attempts) Progress Results/Orders Orders Procedure Category Date Status Time Eye Wash Solution PHA 08/17/16 Complete (Eye-Stream) 12:45 Tetracaine 0.5% Eye PHA 08/17/16 Complete Drops (Tetracaine 0. 12:45 Fluorescein Sodium PHA 08/17/16 Complete (Ful-Zoila) 12:45 Medications Current ED Medications Eye Irrigation Solution (Eye-Stream) 30 ml O ONCE RIGHT EYE Last administered on 08/17/16 12:38; Start 08/17/16 at 12:45; Stop 08/17/16 at 12:46; Status DC Tetracaine HCl (Tetracaine 0.5% Eye Drops) 1 drop O ONCE RIGHT EYE Last administered on 08/17/16 12:38; Start 08/17/16 at 12:45; Stop 08/17/16 at 12:46 ; Status DC Fluorescein Sodium (Ful-Zoila) 1 mg O ONCE RIGHT EYE Last administered on t 12:38; Start 08/17/16 at 12:45; Stop 08/17/16 at 12:46; Status DC Progress Progress Did attempt to remove the FB with use of an eye spud. The FB does not sick up above the cornea however and so was unsuccessfull. Did have Dr Salazar come into room and did get removal of the FB with use of opthalmic marilin. There was no visualization of the FB after use of the marilin with the slit lamp. Will have him go ahead and start on some antibiotic ointment today and I do want him to follow up with his opthalmologist this week for reevaluation. NAFISA AARON APRN Aug 17, 2016 13:19
[2016-08-17] MEDS ORDERED: GENT3.5O4 RIGHT EYE (13:48)
[2016-08-17 13:50] VITALS: BP 149/93; PULSE 83; RESP 15; TEMP 98.1; O2SAT 99
== END 2016-08-17 13:50 | disposition home or self-care (01) ==
LOC: ED 12:12
DX: T15.01XA Foreign body in cornea, right eye, initial encounter (principal); X58.XXXA Exposure to other specified factors, initial encounter; Y93.89 Activity, other specified; Y92.009 Unspecified place in unspecified non-institutional (private) residence as the place of occurrence of the external cause; Y99.8 Other external cause status